=== PATIENT | female | born 1970 | race Caucasian/White ===

== ENCOUNTER 2024-06-13 07:51 | Day surgery (SDC) | payer MEDICAID ==
[2024-06-10 11:38] LABS: EOSINOPHILS # (AUTO) 0.1 X10'3 (0-0.9); MONOCYTES # (AUTO) 0.3 X10'3 (0-0.9); NEUTROPHILS # (AUTO) 2.6 X10'3 (1.8-7.7); WHITE BLOOD COUNT 4.7 X10'3 (4.5-11.0)
[2024-06-10 11:40] LABS: BASOPHILS % (AUTO) 0.8 % (0-1); EOSINOPHILS % (AUTO) 1.6 % (0-6); HEMATOCRIT 38.3 % (35.0-45.0); HEMOGLOBIN 12.8 g/dl (12.0-16.0); LYMPHOCYTES # (AUTO) 1.7 X10'3 (1.1-4.8); LYMPHOCYTES % (AUTO) 35.8 % (21-51); MEAN CORPUSCULAR HEMOGLOBIN 32.2 PG (27.0-31.0); MEAN CORPUSCULAR HGB CONC 33.5 g/dL (33.0-36.5); MEAN PLATELET VOLUME 8.3 FL (7.4-10.4); MONOCYTES % (AUTO) 6.7 % (2-12); NEUTROPHILS % (AUTO) 55.1 % (42-75); PLATELET COUNT 234 X10'3 (140-440); RED BLOOD COUNT 3.99 X10'6 (4.20-5.60)
[2024-06-10 12:00] LABS: ALANINE AMINOTRANSFERASE 68 U/L (12-78); ALBUMIN 3.7 G/DL (3.4-5.0); ALBUMIN/GLOBULIN RATIO 1.2 (1.1-1.5); ALKALINE PHOSPHATASE 74 IU/L (46-116); ANION GAP 6 (8-16); ASPARTATE AMINO TRANSFERASE 52 U/L (10-37); BLOOD UREA NITROGEN 16 MG/DL (7-18); BUN/CREATININE RATIO 16.2 (10.0-20.0); CALCIUM 9.2 MG/DL (8.5-10.1); CHLORIDE 107 MMOL/L (99-107); CREATININE 0.99 MG/DL (0.40-0.90); GLUCOSE 105 MG/DL (70-104); POTASSIUM 4.3 MMOL/L (3.5-5.1); SODIUM 141 MMOL/L (135-145); TOTAL CARBON DIOXIDE 28.3 MMOL/L (24-32); TOTAL PROTEIN 6.8 G/DL (6.4-8.2); eCRCL 62 ML/MIN; eGFR 58 ML/MIN
[2024-06-13] VITALS (7 sets, daily range): BP systolic 118–148; BP diastolic 69–82; PULSE 57–68; RESP 14–18; TEMP 98.4; O2SAT 93–98
[~2024-06-13] VITALS: Ht 154.9 cm; Wt 78.1 kg
[2024-06-13] MEDS: DOCUMENT DATE & TIME OF BETA-BLOCKER PO ONE (06:30)
[~2024-06-13 07:51] MED LIST: DULO20CA18 PO; LIDOcaine 2% (20mg/ml) 5ml vial ONE; METO-384 PO; RAMI10CA78 PO
[2024-06-13] MEDS: famotidine 20mg tablet PO ONE (08:52)
[2024-06-13] MEDS: ringers solution, lacted 1,000 ML IV SCH (08:53)
[2024-06-13] MEDS: cefazolin 2gm/D5W 100mL 100 ML IV ONE (08:53)
[2024-06-13] MEDS ORDERED: fentaNYL/PF 50MCG/1 ML 2ML syringe ONE (10:32)
[2024-06-13] MEDS ORDERED: methylPREDNISolone acetate 80mg/ml inj**IM only ONE (10:56)
[2024-06-13] MEDS ORDERED: propofol 10mg/ml 20ml vial IV ONE (11:12)
[2024-06-13] MEDS ORDERED: ondansetron/PF 4mg/2ml inj IV PRN (11:55)
[2024-06-13] MEDS ORDERED: fentaNYL/PF 50MCG/1 ML 2ML syringe IV PRN (11:55)
[2024-06-13] MEDS ORDERED: ringers solution, lacted 1,000 ML IV SCH (11:55)
[2024-06-13] MEDS ORDERED: HYDROmorphone/PF 0.2 MG/ML SYRINGE IV PRN (11:55)
[2024-06-13] MEDS: BUPIVAcaine/PF 2.5mg/ml (0.25%) 10ml vial ONE (12:36)
[2024-06-13] MEDS: LIDOcaine 2% (20mg/ml) 5ml vial ONE (12:37)
[2024-06-13] MEDS: triamcinolone acetonide 40mg/ml inj ONE (12:39)
== END 2024-06-13 12:21 | disposition home or self-care (01) ==
LOC: PRE-OP 07:51
PROVIDERS: ATTEND Orthopaedic Surgery Hand Surgery
DX: G56.02 Carpal tunnel syndrome, left upper limb (principal); M18.12 Unilateral primary osteoarthritis of first carpometacarpal joint, left hand; I11.0 Hypertensive heart disease with heart failure; I50.9 Heart failure, unspecified; I25.10 Atherosclerotic heart disease of native coronary artery without angina pectoris; E66.9 Obesity, unspecified; Z87.891 Personal history of nicotine dependence; Z79.899 Other long term (current) drug therapy; Z90.5 Acquired absence of kidney; Z90.89 Acquired absence of other organs; Z98.891 History of uterine scar from previous surgery; Z98.890 Other specified postprocedural states; Z68.32 Body mass index [BMI] 32.0-32.9, adult
CPT/HCPCS: 20600; 36415; 64721; 80053; 82948; 85025; J0690; J2405; J2704; J3010; J3301; J3490; J7030; J7120; Z7506; Z7512; A4215; A6449; A7000; J1010